=== PATIENT | male | born 1960 | race Caucasian/White ===

== ENCOUNTER 2025-03-30 11:28 | Emergency (ER) | payer SELFPAY ==
[~2025-03-30] VITALS: Ht 177.8 cm; Wt 79.0 kg
[2025-03-30 11:39] VITALS: O2SAT 96
[2025-03-30] MEDS: MORPHINE SULFATE 4 MG/ML INJ (FOR IV/IM USE) IV ONE (12:08)
[2025-03-30 12:11] LABS: BASOPHILS % 0.6 % (0.0-2.0); EOSINOPHILS % 0.7 % (0.0-5.0); HEMATOCRIT. 40.1 % (42.0-52.0); HEMOGLOBIN. 13.7 g/dL (14.0-18.0); LYMPHOCYTES % 19.2 % (20.0-50.0); MEAN PLATELET VOLUME 8.0 fl (7.4-10.4); MONOCYTES % 6.7 % (2.0-8.0); NEUTROPHILS % 72.8 % (40.0-76.0); PLATELET 178 x1000/uL (130-400); RED BLOOD CELL COUNT 4.13 mill/uL (4.7-6.1); RED CELL DISTRIBUTION WIDTH 13.5 % (11.6-14.6)
[2025-03-30 12:26] LABS: CREATININE 0.9 mg/dL (0.6-1.3); UREA NITROGEN BLOOD 11 mg/dL (9-23)
[2025-03-30] MEDS ORDERED: T3 PO (13:57)
[2025-03-30] MEDS ORDERED: IBUP-2030 PO (13:57)
[2025-03-30 15:50] VITALS: BP 132/89; PULSE 65; RESP 9; TEMP 36.8; O2SAT 98
== END 2025-03-30 15:52 | disposition home or self-care (01) ==
LOC: ER 11:28
DX: T75.4XXA Electrocution, initial encounter (principal); Z79.1 Long term (current) use of non-steroidal anti-inflammatories (NSAID); W86.8XXA Exposure to other electric current, initial encounter; Y93.89 Activity, other specified; Y92.89 Other specified places as the place of occurrence of the external cause; Y99.8 Other external cause status
CPT/HCPCS: 99284; 96374; 71045; 80048; 82550; 85025; 36415; J2270